=== PATIENT | female | born 1955 | race Caucasian/White ===

== ENCOUNTER 2023-10-13 13:27 | Emergency (ER) | payer MEDICARE, OTHER, SELFPAY ==
[2023-10-13 13:29] VITALS: BP 142/72; BMI 33.5
--- NOTE | 2023-10-13 15:38 | ED.MUSCINJ ---
HPI-Injury
General
Chief Complaint: Musculo-Skeletal Complaint
Source: patient
Exam Limitations: none
Time Seen by Provider: 10/13/23 15:03
History of Present Illness-Injury
Initial Injury comments:
68-year-old female states 'my right leg went out on me.' She states she got up from her bed to go to the bathroom at 8 AM, faltered due to pain in the right groin but did not fall. She caught herself on the bathroom door frame. She states a short
while later as she was walking she turned and the pain in her right groin occurred again, she did not fall, she caught herself on the sofa.
She states she has a friend who had a stroke and her friend's leg gave out on her as a sign of the stroke so she wants to make sure she is not having a stroke.
She admits to being anxious about her health as she lives alone.
She denies chest pain, SOB, abdominal pain. Denies N/V/C, states 'I always have diarrhea.'
No recent falls. Denies R groin pain now, laying on stretcher.
Past History
Past History
ED Past Medical History: GERD, HTN, Hypercholesterolemia, NIDDM, Hypothyroidism and Psychiatric (Depression)
ED Past Surgical History: Cholecystectomy and Gynecological
Social History
Tobacco: Non-smoker
Alcohol: None
Drug: None
Personal:
Living: alone
Review of Systems
Review of Systems
Allergies reviewed?: Yes
All Other Systems: ROS reviewed and negative except as documented in HPI and ROS
Constitutional: Denies fever or fatigue
Respiratory: Denies trouble breathing
Cardiac: Denies chest pain
ABD/GI: Denies abdominal pain, nausea, constipated or anorexia
: Denies dysuria, frequency, difficulty voiding or urgency
Musculoskeletal: Reports other (R groin pain ); Denies edema
Skin: Reports no symptoms
Neurological: Denies weakness or numbness
Phy Exam
Physical Exam
Physical Exam:
GENERAL: No acute distress. A&Ox3.
CONSTITUTIONAL: Afebrile.
EYES: clear, conjunctivae normal
RESPIRATORY: Regular respirations, nonlabored, lungs clear.
CARDIOVASCULAR: Regular rate and rhythm, no murmurs, no rubs.
GI: Soft, nontender, normal BS
MUSCULOSKELETAL: Moves with ease. Well perfused. Full ROM of both LE's comfortably. Unable to elicit pain. OOB and ambulating with normal gait
SKIN: Warm, dry, pink
PSYCH: Normal mood and affect. Well kept, interactive
NEUROLOGIC: Awake, alert and oriented. No focal neurological deficits. Strength equal throughout.
Injury Course
Orders/Labs/Results
Orders:
Orders
10/13/23 13:34
EKG [Electrocardiogram (*1)] Urgent
Reason for Study: Other
Other Reason for Exam: pt request
10/13/23 13:35
EKG- Treatment ONCE
10/13/23 15:13
Hip, Right 2-3 Views [CR Hip - RT w/wo Pel 2-3 Vw*] Urgent
Comment:
Reason For Exam: groin pain
Include a pelvis x-ray?: Yes
MDM/Problems Addressed
Differential Diagnosis Includes:
groin strain, pelvic/hip fx, anxiety about health
MDM/Problems Addressed:
68-year-old female states 'my right leg went out on me.' She states she got up from her bed to go to the bathroom at 8 AM, faltered due to pain in the right groin but did not fall. She caught herself on the bathroom door frame. She states a short
while later as she was walking she turned and the pain in her right groin occurred again, she did not fall, she caught herself on the sofa.
She states she has a friend who had a stroke and her friend's leg gave out on her as a sign of the stroke so she wants to make sure she is not having a stroke.
She admits to being anxious about her health as she lives alone. 'How was my EKG?'
She denies chest pain, SOB, abdominal pain. Denies N/V/C, states 'I always have diarrhea.'
No recent falls. Denies R groin pain now, laying on stretcher.
EKG Sinus rhythm with PAC's
3:45 PM
Xray R hip with pelvis: Initially read by this examiner: No bony abnormality noted.
PE is unremarkable. Specifically no abnormal finding in RLE or neurologically.
Pt reassured EKG normal, no indication of stroke, she states she is 'so relieved' to hear that.
She is out of bed and ambulating well
*Critical Care Note
Total Time (30-74mins, 75-104mins- exclusive of procedures): Not Applicable
ED Attending Note
-
Portions of this chart may have been created with voice recognition software.� Occasional wrong word or��sound alike� substitutions may have occurred due to the inherent limitations of voice recognition software.
Discharge Plan
Departure
Patient Disposition: Home (Routine Discharge)
Date of Disposition: 10/13/23
Time of Disposition: 15:55
Patient with high blood pressure during this ER visit?: No
Condition: Good
Discharge Problem:
Anxiety about health, Right groin pain
Instructions: Anxiety, Adult ED, Groin Strain ED
Prescriptions:
No Action
fluoxetine [Prozac] 40 MG capsule
40 mg PO DAILY
metformin 500 MG tablet
500 mg PO BID
clonazepam 1 MG tablet
1 mg PO BID
fexofenadine [Windy] 180 MG tablet
180 mg PO HS
simvastatin 40 MG tablet
40 mg PO QPM
levothyroxine 50 MCG tablet
50 mcg PO DAILY
fluoxetine 10 MG capsule
10 mg PO DAILY
albuterol sulfate 1 PUFF HFA aerosol inhaler
2 puff inhalation R BID
losartan-hydrochlorothiazide 1 EACH tablet
1 ea PO DAILY
bupropion HCl 200 MG tablet sustained-release 12 hr
200 mg PO DAILY
melatonin-pyridoxine HCl (B6) 1 EACH tablet
3 mg PO HS
omeprazole 20 MG tablet,delayed release (DR/EC)
20 mg PO DAILY
cholecalciferol (vitamin D3) [Vitamin D3] 2,000 UNIT capsule
2,000 unit PO QPM
Referrals:
Valerie Man DO [Family Provider] - As needed
Activity Restrictions/Additional Instructions:
As we discussed, your EKG shows nothing worrisome
Your x-ray of your hip and pelvis is normal
You may have a mild groin strain
You have no symptoms of a stroke
Interventions
Interventions:
*Risk Screen - Suicide Last Done: 10/13/23 13:29
*General Assessment Last Done: 10/13/23 15:30
*Neglect/Abuse Screening Last Done: 10/13/23 13:29
*Nursing Disposition Last Done: 10/13/23 16:33
ED-Musculoskeletal Assessment Last Done: 10/13/23 15:06
Discharge Date and Time
Discharge Date/Time: 10/13/23 16:34
Print Language: TURKISH
[2023-10-13 16:31] VITALS: BP 95/68
[2023-10-13 16:33] VITALS: BP 95/68
== END 2023-10-13 16:34 | disposition home or self-care (01) ==
LOC: EMR 13:27
PROVIDERS: EMERGENCY PHYSICIAN Emergency Medicine; FAMILY PHYSICIAN Family Medicine
DX: F41.9 Anxiety disorder, unspecified (principal); R10.31 Right lower quadrant pain; K21.9 Gastro-esophageal reflux disease without esophagitis; I10 Essential (primary) hypertension; E78.00 Pure hypercholesterolemia, unspecified; E11.9 Type 2 diabetes mellitus without complications; E03.9 Hypothyroidism, unspecified; F32.A Depression, unspecified; W23.0XXA Caught, crushed, jammed, or pinched between moving objects, initial encounter; Z90.49 Acquired absence of other specified parts of digestive tract
CPT/HCPCS: 99283; 73502; 93005

== ENCOUNTER → 2023-11-21 13:11 | Outpatient (REF) | payer MEDICARE, OTHER, SELFPAY | LOC: RCS 13:11 | PROVIDERS: ATTENDING PHYSICIAN Family Medicine | DX: R00.2 Palpitations (principal) | CPT/HCPCS: 93225; 93226 ==

== ENCOUNTER → 2024-02-13 13:28 | Outpatient (REF) | payer MEDICARE, OTHER, SELFPAY ==
--- NOTE | 2024-02-13 14:44 | CARDSERVLU ---
Echocardiogram with Lumason completed after protocol screening completed. Allergies verified.
Patent IV site: _Rt hand____
IV site flushed with 0.9% NaCl pre and post administration.
Diluted bolus method utilized to enhance visualization of ventricular cedeño.
Total volume given: __5.0 mL
Patient tolerated all procedures well without complications.
INT placed. Lumason given for stress ECHO. After test, INT d/c'd. dsg applied. Pressure held. No bleeding noted.
== END ==
LOC: RCS 13:28
PROVIDERS: ATTENDING PHYSICIAN Internal Medicine Interventional Cardiology; FAMILY PHYSICIAN Family Medicine
DX: R68.89 Other general symptoms and signs (principal); E78.2 Mixed hyperlipidemia; I10 Essential (primary) hypertension; E66.01 Morbid (severe) obesity due to excess calories; Z82.49 Family history of ischemic heart disease and other diseases of the circulatory system; I49.8 Other specified cardiac arrhythmias
CPT/HCPCS: 93017; 93350; Q9950

== ENCOUNTER → 2024-02-16 13:03 | Outpatient (REF) | payer MEDICARE, OTHER, SELFPAY | LOC: HWRCS 13:03 | PROVIDERS: ATTENDING PHYSICIAN Internal Medicine Interventional Cardiology; FAMILY PHYSICIAN Family Medicine | DX: R68.89 Other general symptoms and signs (principal) | CPT/HCPCS: 93306 ==

== ENCOUNTER → 2024-10-01 11:37 | Outpatient (REF) | payer MEDICARE, OTHER, SELFPAY ==
[2024-10-01 12:47] LABS: Hematocrit 39.2 % (37.0-47.0); Hemoglobin 12.6 g/dL (12.0-16.0); Mean Corp Hgb Conc. 32.1 g/dL (33.0-37.0); Mean Corpuscular Volume 85.6 fL (81.0-99.0); Nucleated Red Blood Cells % 0 %; Platelet Count 324 10^3/uL (130-400); Red Cell Dist. Width 13.9 % (11.5-14.5)
[2024-10-01 13:33] LABS: ALT (SGPT) 25 U/L (0-35); AST (SGOT) 24 U/L (14-36); Albumin 4.2 g/dl (3.5-5.0); Alkaline Phosphatase 72 U/L (38-126); Blood Urea Nitrogen 18 mg/dl (7-17); Calcium 9.5 mg/dl (8.4-10.2); Carbon Dioxide 25 mmol/L (22-30); Chloride 105 mmol/L (98-107); Glucose 120 mg/dl (70-99); HDL Cholesterol 52 mg/dl; Potassium 4.8 mmol/L (3.5-5.1); Sodium 135 mmol/L (135-145); Total Protein 6.8 g/dl (6.3-8.2); eGFR > 60.00
[2024-10-01 13:51] LABS: Glycohemoglobin (HgbA1c) 6.1 % (4.0-5.6)
[2024-10-01 13:55] LABS: LDL Cholesterol, Calculated 100 mg/dl; Very Low Density Lipoprotein 30 mg/dl (0-30)
[2024-10-01 13:58] LABS: TSH 0.57 uIU/ml (0.47-4.68)
[2024-10-01 14:57] LABS: Microalbumin, Random Urine 0.7 mg/dl (0.6-1.7)
== END ==
LOC: REG 11:37
PROVIDERS: ATTENDING PHYSICIAN Family Medicine
DX: E11.9 Type 2 diabetes mellitus without complications (principal); E78.2 Mixed hyperlipidemia; E03.9 Hypothyroidism, unspecified; I10 Essential (primary) hypertension
CPT/HCPCS: 36415; 80053; 80061; 82043; 83036; 84439; 84443; 85025

== ENCOUNTER → 2024-10-08 12:59 | Outpatient (REF) | payer MEDICARE, OTHER, SELFPAY ==
[2024-10-08 14:48] LABS: C-Reactive Protein < 5.00 mg/L (0.0-10.00)
[2024-10-10 13:43] LABS: Rheumatoid Agglutinin Less Than 10 IU (<10 IU)
== END ==
LOC: REG 12:59
PROVIDERS: ATTENDING PHYSICIAN Family Medicine
DX: L12.1 Cicatricial pemphigoid (principal); R53.83 Other fatigue; L30.9 Dermatitis, unspecified; M25.9 Joint disorder, unspecified
CPT/HCPCS: 36415; 85652; 86038; 86140; 86430

== ENCOUNTER 2024-12-10 17:45 | Emergency (ER) | payer MEDICARE, OTHER, SELFPAY ==
[2024-12-10 18:02] VITALS: BP 133/84
[2024-12-10 18:25] LABS: Hematocrit 38.4 % (37.0-47.0); Hemoglobin 12.6 g/dL (12.0-16.0); Mean Corp Hgb Conc. 32.8 g/dL (33.0-37.0); Mean Corpuscular Volume 84.4 fL (81.0-99.0); Nucleated Red Blood Cells % 0 %; Platelet Count 316 10^3/uL (130-400); Red Cell Dist. Width 13.5 % (11.5-14.5)
[2024-12-10 18:31] LABS: INR 0.99; PT 13.4 Sec (11.4-14.6)
[2024-12-10 18:35] LABS: ALT (SGPT) 28 U/L (0-35); AST (SGOT) 29 U/L (14-36); Albumin 4.3 g/dl (3.5-5.0); Alkaline Phosphatase 70 U/L (38-126); Blood Urea Nitrogen 17 mg/dl (7-17); Calcium 9.9 mg/dl (8.4-10.2); Carbon Dioxide 27 mmol/L (22-30); Chloride 102 mmol/L (98-107); Glucose 102 mg/dl (70-99); Potassium 4.7 mmol/L (3.5-5.1); Sodium 134 mmol/L (135-145); Total Protein 7.2 g/dl (6.3-8.2); eGFR > 60.00
[2024-12-10 19:00] LABS: Troponin I < 0.012 ng/ml
[2024-12-10 22:54] LABS: Glucose - Point of Care 90 mg/dl (70-99)
[2024-12-10 23:01] VITALS: BP 126/57
[2024-12-10 23:14] VITALS: BMI 34.6
[2024-12-10 23:55] LABS: C-Reactive Protein < 5.00 mg/L (0.0-10.00)
[2024-12-11] VITALS: BP 135/62
--- NOTE | 2024-12-11 00:58 | ED.GENMED ---
History of Present Illness
General
Chief Complaint: Weakness
Source: patient
Exam Limitations: none
Time Seen by Provider: 12/10/24 22:21
Nursing documentation reviewed up to this point in time: agreed with
History of Present Illness
History of Present Illness:
Note:
CHIEF COMPLAINT(S)
Elevated C-reactive protein and possible cardiac concerns.
HISTORY OF PRESENT ILLNESS
The patient is a 69-year-old female who was informed by her adult school teacher of an elevated C-reactive protein level, prompting further evaluation due to concerns it might relate to cardiac issues. She reports experiencing chest pain localized to the
muscle as of yesterday, but does not describe consistent shortness of breath, noting rare occurrences every 12 hours. No new weakness has been noted recently, though she references an episode a year ago when she was unable to get out of a bathtub
due to weakness. Currently, she expresses feeling run down and wanting to sleep more than usual over the last day. There is also mention of nausea occurring a few weeks prior. The patient has a history of asthma, depression, anxiety, and a diagnosis
of MMP (mucous membrane pemphigoid). She recently underwent a procedure to address basal cell carcinoma on her eyelid and has a biopsy scheduled in two weeks. No fevers or chills were reported.
PAST MEDICAL AND SURGICAL HISTORY
1. Depression and anxiety
2. Thyroid disorder
3. Basal cell carcinoma on eyelid, recently addressed with MOHS procedure
4. Mucous membrane pemphigoid
CHRONIC MEDICAL CONDITIONS SIGNIFICANTLY AFFECTING CARE
1. Asthma
SOCIAL HISTORY
The patient denies smoking or alcohol use but consumes one cup of coffee daily. The patient lives alone with her dog, as her spouse is . She reports feeling overwhelmed managing her household on her own.
PHYSICAL EXAM
General: Alert, no acute distress.
Skin: Warm, dry.
Head: Normocephalic, atraumatic.
Neck: Supple, trachea midline.
Eyes, Ears, Nose, Mouth, and Throat: Oral mucosa moist.
Cardiovascular: Normal peripheral perfusion, no edema, distal pulses good. Blood pressure at 126/57 mmHg.
Respiratory: Respirations are non-labored.
Gastrointestinal: Abdomen nondistended.
Back: Normal range of motion, normal alignment.
Musculoskeletal: Normal range of motion, normal strength.
Neurological: Alert and oriented to person, place, time, and situation. No focal neurological deficit observed.
Psychiatric: Cooperative, appropriate mood and affect.
PLAN
1. Repeat lab tests for further evaluation of elevated C-reactive protein and cardiac status.
2. Perform an Electrocardiogram (EKG) and additional cardiac tests as indicated.
3. Coordination of care with her detail assembler, Dr. Hopkins.
4. Follow up with her adult school teacher regarding C-reactive protein and any further rheumatological concerns.
DIFFERENTIAL DIAGNOSIS
The Differential Diagnosis includes, in no particular order and is not limited to:
1. Cardiovascular disease, including myocardial infarction
2. Anxiety affecting cardiac symptoms
3. Musculoskeletal chest discomfort
4. Rheumatologic conditions such as rheumatoid arthritis flares
5. Asthma exacerbation
6. Heart failure
7. Pulmonary embolism
8. Infectious causes, such as pneumonia
9. Basal cell carcinoma-related systemic symptoms
10. Thyroid disorder-related cardiac symptoms
Disposition:
SUMMARY OF ENCOUNTER
The patient is a 69-year-old female who presented with concern for weakness. She reported an episode of weakness over a year ago, with intermittent occurrences since then. She was evaluated by a adult school teacher who noted an elevated C-reactive
protein. In the emergency department, she did not report any acute complaints, such as chest pain, shortness of breath, or fevers. Her examination was unremarkable except for weakness. Due to her history and findings, she was deemed stable for
discharge with instructions to follow up.
DISPOSITION
Discharge
PLAN
The patient is advised to follow up with her primary care provider and adult school teacher to further evaluate the cause of the elevated C-reactive protein and the ongoing weakness.
MEDICAL DECISION MAKING
- Number and Complexity of Problems Addressed: Chronic conditions affecting care include past episodes of weakness and elevated C-reactive protein. Differential Diagnosis includes cardiovascular disease, anxiety affecting cardiac symptoms,
musculoskeletal chest discomfort, rheumatologic conditions such as rheumatoid arthritis flares, asthma exacerbation, heart failure, pulmonary embolism, infectious causes such as pneumonia, basal cell carcinoma-related systemic symptoms, and thyroid
disorder-related cardiac symptoms.
- Data:
Category 1: No specific tests were conducted in the emergency department during this visit.
Category 3: Management discussions were oriented towards the coordination of care with her primary healthcare providers for further outpatient evaluation and management.
- Risk: Consideration of Admission/Observation: Escalation of care including admission/observation was considered given the complexity and risk of the patients presenting complaint, exam findings, and underlying comorbidities. However, ultimately, I
feel the patient is safe for outpatient management with close follow-up. Reasoning: Work-up reassuring, does not reveal any acute life/organ-threatening processes, patients symptoms well controlled upon reevaluation, reexamination is reassuring,
vitals are stable, patient agreeable with discharge, and reliable for follow-up. Care significantly affected by Social Determinants of Health: The patient manages the household alone following the loss of her spouse, and this contributes to her
feelings of being overwhelmed.
DIAGNOSIS
- Elevated C-reactive protein, unspecified (R79.82)
- Generalized weakness (R53.1)
Past History
Past History
ED Past Medical History: GERD, HTN, Hypercholesterolemia, NIDDM, Hypothyroidism and Psychiatric (Depression)
ED Past Surgical History: Cholecystectomy and Gynecological
Social History
Tobacco: Non-smoker
Alcohol: None
Drug: None
Personal:
Living: alone
Phy Exam
Physical Exam
Physical Exam:
.
Course
Orders/Labs/Results
Orders:
Orders
12/10/24 17:54
Electrocardiogram (*1) Urgent
Reason for Study: Chest Pain
EKG- Treatment ONCE
12/10/24 18:13
C-Reactive Protein Urgent
Comment: ADD ON
Complete Blood Count/With Diff Urgent
Comprehensive Metabolic Panel Urgent
Erythrocyte Sed Rate Urgent
Comment: ADD ON
Prothrombin Time Urgent
Troponin I Urgent
12/10/24 23:10
Add On- LAB Urgent
Tests Added?: sed rate, crp
Abnormal Lab Results
12/10/24
18:13
MCHC 32.8 L g/dL
(33.0-37.0)
Absolute Monos (auto) 1.0 H 10^3/uL
(0.1-0.6)
Monocytes % 11.6 H %
(1.7-9.3)
Sodium 134 L mmol/L
(135-145)
Glucose 102 H mg/dl
(70-99)
12/10/24 18:13
12/10/24 18:13
Vital Signs
Initial and Last Documented VS:
Initial Vital Signs
Temp Pulse Resp BP Pulse Ox
98.6 F 68 20 133/84 96
12/10/24 18:02 12/10/24 18:02 12/10/24 18:02 12/10/24 18:02 12/10/24 18:02
Last Documented Vital Signs
Temp Pulse Resp BP Pulse Ox
98.6 F 90 19 120/66 98
12/10/24 18:02 12/11/24 01:30 12/11/24 01:30 12/11/24 01:00 12/11/24 00:59
*Pulse Oximetry
SaO2: 98
Oxygen Mode of Delivery: Room air
Patient hypoxic: no
*Critical Care Note
Total Time (30-74mins, 75-104mins- exclusive of procedures): Not Applicable
ED Attending Note
-
Portions of this chart may have been created with voice recognition software.� Occasional wrong word or��sound alike� substitutions may have occurred due to the inherent limitations of voice recognition software.
Discharge Plan
Departure
Patient Disposition: Home (Routine Discharge)
Date of Disposition: 12/11/24
Time of Disposition: 01:00
Patient with high blood pressure during this ER visit?: Yes
Discharge Problem:
Weakness
Instructions: Generalized Weakness (DC), BLOOD PRESSURE
Prescriptions:
No Action
fluoxetine [Prozac] 40 MG capsule
40 mg PO DAILY
metformin 500 MG tablet
500 mg PO BID
clonazepam 1 MG tablet
1 mg PO BID
fexofenadine [Windy] 180 MG tablet
180 mg PO HS
simvastatin 40 MG tablet
40 mg PO QPM
levothyroxine 50 MCG tablet
50 mcg PO DAILY
fluoxetine 10 MG capsule
10 mg PO DAILY
albuterol sulfate 1 PUFF HFA aerosol inhaler
2 puff inhalation R BID
losartan-hydrochlorothiazide 1 EACH tablet
1 ea PO DAILY
bupropion HCl 200 MG tablet sustained-release 12 hr
200 mg PO DAILY
melatonin-pyridoxine HCl (B6) 1 EACH tablet
3 mg PO HS
omeprazole 20 MG tablet,delayed release (DR/EC)
20 mg PO DAILY
cholecalciferol (vitamin D3) [Vitamin D3] 2,000 UNIT capsule
2,000 unit PO QPM
Referrals:
Lisa Obando MD [Family Provider, Family Practice]
Activity Restrictions/Additional Instructions:
Thank You for choosing [facility].
It was a pleasure meeting you and taking part in your care. We hope for your continued healing and wellness.
Please read discharge instructions in their entirety. However, they are for general education and may not describe your exact diagnosis at discharge. Information on your ER visit and medical conditions were discussed with you along with appropriate
follow up information...
If indicated, please take your medications as instructed and indicated on discharge paperwork.
Please schedule a follow up appointment as directed. Call to schedule an appointment
Please return to the emergency department with ANY change in, persisting, or worsening of symptoms. If any of your symptoms do not improve, or persist, or become more severe within 6-12 hours, please return to the emergency department for further
care.
Please return to the emergency department if you develop a headache, neck pain/stiffness, fever greater than 100.4F, chest pain, shortness of breath, persistent nausea, vomiting, slurred speech, difficulty walking, numbness/tingling, weakness, signs
of infection or any other symptoms that are worrisome to you.
If you have any questions or concerns please do not hesitate to call the Hospital at or E-mail me directly at [email or web address]
Interventions
Interventions:
*Risk Screen - Suicide Last Done: 12/10/24 18:08
*General Assessment Last Done: 12/10/24 18:08
*Neglect/Abuse Screening Last Done: 12/10/24 18:08
*ED- Fall Risk Assessment Last Done: 12/11/24 01:39
*ED COVID-19 Vaccine History Last Done: 12/10/24 18:08
*Nursing Disposition Last Done: 12/11/24 01:39
ED- Cardiac Assessment Last Done: 12/10/24 23:10
ED- Neurological Assessment Last Done: 12/10/24 23:10
ED- Pulmonary Assessment Last Done: 12/10/24 23:10
Discharge Date and Time
Discharge Date/Time: 12/11/24 01:46
Print Language: [email or web address]
[2024-12-11 01:00] VITALS: BP 120/66
== END 2024-12-11 01:46 | disposition home or self-care (01) ==
LOC: EMR 17:45
PROVIDERS: Emergency Medicine; EMERGENCY PHYSICIAN Student in an Organized Health Care Education/Training Program; FAMILY PHYSICIAN Family Medicine
DX: R53.1 Weakness (principal); E11.9 Type 2 diabetes mellitus without complications; I10 Essential (primary) hypertension; E78.00 Pure hypercholesterolemia, unspecified; J45.909 Unspecified asthma, uncomplicated; E03.9 Hypothyroidism, unspecified; K21.9 Gastro-esophageal reflux disease without esophagitis; L12.1 Cicatricial pemphigoid; F41.9 Anxiety disorder, unspecified; F32.A Depression, unspecified; Z79.84 Long term (current) use of oral hypoglycemic drugs; Z85.828 Personal history of other malignant neoplasm of skin
CPT/HCPCS: 99284; 80053; 82962; 84484; 85025; 85610; 85652; 86140; 93005

== ENCOUNTER → 2024-12-13 13:32 | Outpatient (REF) | payer MEDICARE, OTHER, SELFPAY | LOC: RAD 13:32 | PROVIDERS: ATTENDING PHYSICIAN Student in an Organized Health Care Education/Training Program; FAMILY PHYSICIAN Family Medicine | DX: L12.9 Pemphigoid, unspecified (principal); M25.561 Pain in right knee; M25.562 Pain in left knee; M79.642 Pain in left hand; M79.673 Pain in unspecified foot; R53.83 Other fatigue; R70.0 Elevated erythrocyte sedimentation rate | CPT/HCPCS: 73120; 73560; 73565; 73630 ==